=== PATIENT | female | born 1935 | race Caucasian/White ===

== ENCOUNTER → 2021-04-26 | Outpatient (CLI) | payer MEDICARE, OTHER | LOC: EMI 13:00 | DX: M51.16 Intervertebral disc disorders with radiculopathy, lumbar region (principal); M47.816 Spondylosis without myelopathy or radiculopathy, lumbar region; M48.061 Spinal stenosis, lumbar region without neurogenic claudication | CPT/HCPCS: 72148 ==

== ENCOUNTER → 2021-07-18 | Outpatient (CLI) | payer MEDICARE ==
[~2021-07-18] MED LIST: CYMBALTA 20 MG20 MG PO; DOCUSATE SODIU100 MG PO; FOLIC ACID 1 MG1 MG PO; GABAPENTIN800 MG PO; HYDROCHLOROTHIA25 MG PO; LEVOTHYROXINE50 MC1 PO; LOW DOSE ASPIRI81 MG PO; OXYCODONE-ACET1 EACH PO; QUINAPRIL HCL20 MG PO; VITAMIN D21250 MCG PO
[2021-07-18 14:10] LABS: HEMOGLOBIN 12.6 gm/dl (12.3-15.3); RED BLOOD COUNT 4.06 M/UL (4.00-5.10); WHITE BLOOD COUNT 6.4 K/UL (4.5-11.0)
== END ==
LOC: OPSV2 12:30 → EDSTATUS 12:30 → OPSV2 12:53
PROVIDERS: Orthopaedic Surgery
DX: Z01.818 Encounter for other preprocedural examination (principal); M54.16 Radiculopathy, lumbar region; M48.061 Spinal stenosis, lumbar region without neurogenic claudication
CPT/HCPCS: 71046; 80048; 81001; 85025; 85610; 85730; 87081; 87086; 93005

== ENCOUNTER → 2021-07-29 | Outpatient (CLI) | payer MEDICARE ==
[~2021-07-29] MED LIST changes: +CYCLOBENZAPRINE5 MG PO; +HYDROCODON-ACE1 EAC4 PO; -LEVOTHYROXINE50 MC1 PO; +LEVOTHYROXINE50 MCG PO; +ONDANSETRON HCL8 MG PO
== END ==
LOC: LAB 13:02
PROVIDERS: Orthopaedic Surgery
DX: Z01.812 Encounter for preprocedural laboratory examination (principal)
CPT/HCPCS: 80048; 86850; 86900; 86901